=== PATIENT | female | born 1965 | race Caucasian/White ===

== ENCOUNTER 2021-03-14 15:12 | Inpatient (IN) | payer OTHER ==
[~2021-03-14] VITALS: Ht 152.4 cm; Wt 59.9 kg
--- NOTE | 2021-03-14 15:39 | NUR ---
THE PATIENT IS BIBDAUGHTER. THE PATIENT STATES HAVING PANIC ATTACK. C/O FEELING ANXIOUS. IN ROOM AIR AND DENIES SOB. RESPIRATION REGULAR AND UNLABORED. DENIES PAIN. WILL CONTINUE TO MONITOR THE PATIENT.
[2021-03-14] MEDS ORDERED: LORAZEPAM 1 MG TABLET ONE (15:43)
[2021-03-14] MEDS ORDERED: LORAZEPAM 1 MG TABLET PO ONE (16:00)
[2021-03-14 16:08] LABS: BASOPHILS # (AUTO) 0.1 K/uL (0.0-0.2); BASOPHILS % (AUTO) 0.6 % (0.0-2.0); EOSINOPHILS % (AUTO) 0.3 % (0.0-6.0); HEMATOCRIT 39 % (33-45); HEMOGLOBIN 13.6 g/dL (11.5-14.8); LYMPHOCYTES # (AUTO) 1.6 K/uL (0.8-4.8); LYMPHOCYTES % (AUTO) 19.8 % (20.0-44.0); MEAN CORPUSCULAR HGB CONC 35 g/dl (31.0-36.0); MEAN CORPUSCULAR VOLUME 89 fL (82-100); MONOCYTES # (AUTO) 0.3 K/uL (0.1-1.30); MONOCYTES % (AUTO) 3.9 % (2.0-12.0); NEUTROPHILS # (AUTO) 6.2 K/uL (1.8-8.9); NEUTROPHILS % (AUTO) 75.4 % (43.0-81.0); PLATELET COUNT (AUTO) 277 K/uL (150-450); RED BLOOD CELL COUNT(AUTO) 4.37 MIL/uL (4.0-5.2); WHITE BLOOD COUNT (AUTO) 8.2 K/uL (4.3-11.0)
[2021-03-14 16:28] LABS: CALCIUM, SERUM 8.4 mg/dL (8.5-10.1); CREATININE 0.7 mg/dL (0.6-1.3)
[2021-03-14 16:29] LABS: POTASSIUM 2.8 mmol/L (3.5-5.1)
[2021-03-14] MEDS ORDERED: ASPIRIN 325 MG TABLET ONE (16:47)
[2021-03-14] MEDS ORDERED: NITROGLYCERIN PACKET 1 GM PACKET ONE (16:47)
[2021-03-14] MEDS ORDERED: IOHEXOL-350 100 ML VIAL IV ONE (16:50)
[2021-03-14] MEDS ORDERED: CT SWABBABLE VALVE TRANS SET 1 EA INFUS.SET MC ONE (16:50)
[2021-03-14] MEDS ORDERED: IV NS 0.9% 250 ML IV ONE (16:50)
[2021-03-14] MEDS ORDERED: ACETAMINOPHEN 325 MG TABLET PO PRN (17:00)
[2021-03-14] MEDS ORDERED: IV NS 0.9% 1,000 ML IV PRN (17:00)
[2021-03-14] MEDS ORDERED: MAGNESIUM HYDROXIDE 30 ML UDC PO PRN (17:00)
[2021-03-14] MEDS ORDERED: MAG HYDROX/AL HYDROX/SIMETH 30 ML UDC PO PRN (17:00)
[2021-03-14] MEDS ORDERED: NITROGLYCERIN 0.4 MG/TAB BOTTLE SL PRN (17:00)
[2021-03-14] MEDS ORDERED: ZOLPIDEM TARTRATE 5 MG TABLET PO PRN (17:00)
[2021-03-14] MEDS ORDERED: Z GUARD REMEDY 2 OZ OINT TP PRN (17:00)
[2021-03-14] MEDS ORDERED: NITROGLYCERIN PACKET 1 GM PACKET TD ONE (17:00)
[2021-03-14] MEDS ORDERED: ASPIRIN 325 MG TABLET PO ONE (17:00)
[2021-03-14] MEDS ORDERED: ONDANSETRON HCL/PF 4 MG/2 ML VIAL IVP PRN (17:00)
--- NOTE | 2021-03-14 17:09 | NUR ---
CALLED NURSING SUP FOR BED
--- NOTE | 2021-03-14 17:29 | NUR ---
The patient is taken for CT angio heart. The patient left ER in stable condition.
[2021-03-14] MEDS: METOPROLOL TARTRATE INJ 5 MG/5 ML AMPUL IVP PRN ×8 (17:41→18:16)
[2021-03-14] MEDS ORDERED: METOPROLOL TARTRATE INJ 5 MG/5 ML AMPUL ONE ×2 (17:42→17:51)
[2021-03-14] MEDS ORDERED: NITROGLYCERIN 0.4 MG/TAB BOTTLE SL ONE (18:00)
[2021-03-14] MEDS ORDERED: HYDROCODONE/APAP 5/325MG TABLET PO PRN (19:00)
--- NOTE | 2021-03-14 20:05 | NUR ---
report given to venita pena for darius.
[2021-03-14 20:15] VITALS: BP 127/77
[2021-03-14] MEDS ORDERED: POTASSIUM CHLORIDE 20 MEQ TAB.PRT.SR PO ONE ×2 (20:30→21:30)
--- NOTE | 2021-03-14 20:30 | NUR ---
PROPOSAL ENGINEER ADMITTING NOTES RECEIVED PATIENT VIA COLTEN, AWAKE, A&O X 4, ABLE TO MAKE NEEDS KNOWN. PATIENT ABLE TO AMBULATE UPON TRANSFER TO BED. NO COMPLAINTS OF PAIN, CHEST PAIN AT THIS TIME. HOOKED TO TELE MONITOR, SHOWING SINUS ZAIDA HR 58 AT THIS TIME. VITAL SIGNS TAKEN AND RECORDED FOLLOWS: TEMP 97.8, HR 58, RR 20, BP 127/77, OXYGEN SATURATION AT 98% ON ROOM AIR. NO SOB, NO S/SX OF ACUTE DISTRESS NOTED. IV ACCESS ON DERIC G#20, STARTED NS 1L X 75CC/HR, INFUSING WELL, NO REDNESS, NO S/SX OF INFILTRATION NOTED. SAFETY PRECAUTIONS OBSERVED: BED ON LOWEST LOCKED POSITION, SIDE RAILS RAISED X 2, CALL LIGHT WITHIN EASY REACH. INSTRUCTED ON CARDIAC DIET. INSTRUCTED TO USE CALL LIGHT WHEN ASSISTANCE IS NEEDED. PATIENT VERBALIZED UNDERSTANDING OF INSTRUCTIONS GIVEN. WILL CONTINUE TO MONITOR PATIENT'S STATUS.
[2021-03-15] VITALS: BP 106/60
[2021-03-15 04:00] VITALS: BP_SYST 106; BP_SYST 125; BP_DIAS 60; BP_DIAS 68
[2021-03-15 04:34] LABS: BASOPHILS % (AUTO) 0.3 % (0.0-2.0); EOSINOPHILS % (AUTO) 1.1 % (0.0-6.0); HEMATOCRIT 39 % (33-45); LYMPHOCYTES # (AUTO) 3.2 K/uL (0.8-4.8); LYMPHOCYTES % (AUTO) 36.1 % (20.0-44.0); MEAN CORPUSCULAR HGB CONC 34 g/dl (31.0-36.0); MEAN CORPUSCULAR VOLUME 90 fL (82-100); MONOCYTES # (AUTO) 0.6 K/uL (0.1-1.30); MONOCYTES % (AUTO) 6.4 % (2.0-12.0); NEUTROPHILS # (AUTO) 4.9 K/uL (1.8-8.9); NEUTROPHILS % (AUTO) 56.1 % (43.0-81.0); PLATELET COUNT (AUTO) 268 K/uL (150-450); RED BLOOD CELL COUNT(AUTO) 4.32 MIL/uL (4.0-5.2); WHITE BLOOD COUNT (AUTO) 8.8 K/uL (4.3-11.0)
[2021-03-15 04:46] LABS: CALCIUM, SERUM 8.2 mg/dL (8.5-10.1); CREATININE 0.6 mg/dL (0.6-1.3); MAGNESIUM 2.1 mg/dL (1.8-2.4); PHOSPHORUS 3.2 mg/dL (2.5-4.9); POTASSIUM 4.5 mmol/L (3.5-5.1)
--- NOTE | 2021-03-15 06:27 | NUR ---
TWISTING FRAME OPERATOR CLOSING NOTES PATIENT IN BED, AWAKE, A&O X 4, ABLE TO MAKE NEEDS KNOWN. NO COMPLAINTS OF CHEST PAIN AT THIS TIME. ON TELE MONITOR, SHOWING SINUS ZAIDA HR 58 AT THIS TIME. ON RA TOLERATING WELL. NO SOB, NO S/SX OF ACUTE DISTRESS NOTED. IV ACCESS ON DERIC G#20 WITH NS 1L X 75CC/HR, INFUSING WELL, NO REDNESS, NO S/SX OF INFILTRATION NOTED. SAFETY PRECAUTIONS OBSERVED AND MAINTAINED DURING THE SHIFT: BED ON LOWEST LOCKED POSITION, SIDE RAILS UP X 2, CALL LIGHT WITHIN EASY REACH. ALL NEEDS ATTENDED AND MET. WILL ENDORSE TO MORNING SHIFT NURSE FOR HOWARD.
[2021-03-15 08:00] VITALS: BP 134/71
--- NOTE | 2021-03-15 08:03 | NUR ---
TELE/RN OPENING NOTES RECEIVED PATIENT IN BED, AWAKE, A&O X 4, ABLE TO MAKE NEEDS KNOWN. NO COMPLAINTS OF CHEST PAIN AT THIS TIME. ON TELE MONITOR, SHOWING SINUS ZAIDA AT THIS TIME. ON ROOM AIR TOLERATING WELL. NO SOB, NO S/SX OF ACUTE DISTRESS NOTED. IV ACCESS ON DERIC G#20 WITH NS 1L X 75CC/HR, INFUSING WELL, NO REDNESS, NO S/SX OF INFILTRATION NOTED. SAFETY PRECAUTIONS OBSERVED: BED ON LOWEST LOCKED POSITION, SIDE RAILS UP X 2, CALL LIGHT WITHIN EASY REACH. WILL CONTINUE TO MONITOR PATIENT.
[2021-03-15] MEDS ORDERED: CYCL5TAB PO (08:32)
[2021-03-15] MEDS ORDERED: ASPIRIN 81 MG TAB.CHEW PO SCH (09:00)
[2021-03-15 12:00] VITALS: BP 120/62
--- NOTE | 2021-03-15 13:00 | NUR ---
TELE/DRYING RACK CHANGER NOTES PATIENT IS MEDICALLY STABLE AND MD ORDERED DISCHARGE TO HOME. PATIENT IS ALERT AND ORIENTED X4, ABLE TO MAKE NEEDS KNOWN. AMBULATORY. IN ROOM AIR WITH NO DISTRESS NOTED. SKIN INTACT. DISCHARGE INSTRUCTIONS GIVEN TO THE PATIENT AND ABLE TO VERBALIZED UNDERSTANDING. ALL BELONGINGS ACCOUNTED FOR. IV ACCESS TAKEN OUT. PATIENT WHEELED DOWN TO THE LOBBY AND WAS PICKED UP BY DAUGHTER.
== END 2021-03-15 13:18 | disposition home or self-care (01) | DRG 281 ==
LOC: ER 15:28 → TELE 20:05
PROVIDERS: ADMIT Nurse Practitioner Acute Care
DX: I21.4 Non-ST elevation (NSTEMI) myocardial infarction (principal); E87.1 Hypo-osmolality and hyponatremia; M54.30 Sciatica, unspecified side; E87.6 Hypokalemia; R73.9 Hyperglycemia, unspecified; F41.0 Panic disorder [episodic paroxysmal anxiety]; G89.29 Other chronic pain; F41.9 Anxiety disorder, unspecified; E83.51 Hypocalcemia
CPT/HCPCS: 36415; 71045-TC; 75574; 80048-TC; 80061-TC; 83735-TC; 84100-TC; 84484-TC; 85025-TC; 87081-TC; C9803; G0378; J3490; J7030; J7050; Q9967